=== PATIENT | male | born 1960 | race Two or more races ===

== ENCOUNTER 2017-08-01 08:39 | Inpatient (IN) | payer MEDICAID ==
[2017-08-01] VITALS (7 sets, daily range): BP systolic 126–148; BP diastolic 59–77
[~2017-08-01] VITALS: Ht 165.1 cm; Wt 72.6 kg
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
[2017-08-01 09:21] LABS: MEAN CORPUSCULAR HGB CONC 31.1 G/DL (32.0-36.0); MEAN CORPUSCULAR VOLUME 74 FL (80-99); MEAN PLATELET VOLUME 7.5 FL (6.5-10.1); PLATELET COUNT 89 K/UL (150-450); RED BLOOD COUNT 4.39 M/UL (4.70-6.10); WHITE BLOOD COUNT 9.9 K/UL (4.8-10.8)
[2017-08-01 09:33] LABS: TROPONIN I < 0.30 ng/mL (<=0.30)
[2017-08-01 09:36] LABS: ALANINE AMINOTRANSFERASE 44 U/L (3-41); ALBUMIN/GLOBULIN RATIO 0.8 (1.0-2.7); ASPARTATE AMINO TRANSFERASE 117 U/L (5-40); CALCIUM 7.8 mg/dL (8.6-10.2); CARBON DIOXIDE 20 mEQ/L (20-30); CHLORIDE 87 mEQ/L (98-107); CREATININE 1.1 mg/dL (0.7-1.2); GLOMERULAR FILTRATION RATE > 60 mL/min (>60); HEMOLYSIS 0; SODIUM 123 mEQ/L (135-145); TOTAL PROTEIN 7.8 g/dL (6.6-8.7)
[2017-08-01 09:42] LABS: ANION GAP 16 (5-15)
[2017-08-01 09:44] LABS: POTASSIUM 2.7 mEQ/L (3.4-4.9)
[2017-08-01 09:58] LABS: BILIRUBIN,DIRECT 0.6 mg/dL (0.1-0.3)
--- NOTE | 2017-08-01 10:00 | Diagnostic Imaging Report ---
Indication: Head trauma. Facial trauma and pain Technique: Contiguous 5 mm thick transaxial imaging of the head obtained in a Siemens Sensation [address] scanner. Soft tissue and bone windows generated. Total Dose length Product (DLP): [address] Dose Index Volume (CTDIvol): 70.38, 0.15 mGy Comparison: none Findings: There is mild prominence of the ventricles, basal cisterns, and cerebral sulci consistent with atrophy. Mild, nonspecific, white matter hypoattenuation is noted throughout the brain consistent with chronic small vessel disease. There is no midline shift, edema, acute hemorrhage, mass effect, or abnormal extra-axial fluid collections. There is a moderate degree of left periorbital soft tissue swelling. The soft tissue swelling is consistent with a contusion. There are small radiopaque foci within the area of swelling which may represent a small foreign bodies. Please refer to the report CT facial bones Impression: No acute intracranial bleed, mass effect or edema. Mild atrophy of the brain. Nonspecific white matter hypoattenuation probably due to chronic small vessel disease. Left periorbital soft tissue contusion. The CT scanner at [facility] is accredited by the [employer] and the scans are performed using dose optimization techniques as appropriate to a performed exam including Automatic Exposure control.
--- NOTE | 2017-08-01 10:06 | Diagnostic Imaging Report ---
Indication: Facial orbital trauma and pain Technique: Continuous helical transaxial imaging of the maxillofacial structures obtained without intravenous contrast administration. Coronal 2-D reformats were also obtained. Study obtained in a Siemens sensation [address] Total Dose length Product (DLP): Refer CT head mGycm CT Dose Index Volume (CTDIvol): Refer CT head mGy Comparison: None Findings: There is a left periorbital soft tissue swelling and laceration. Small radiopaque foreign body noted within the contused soft tissues. Patient has had surgery on the left globe. Retro-orbital fat is normal. Extraocular muscles and optic nerve appear unremarkable. There is no proptosis. There is no acute fracture of the orbit or other osseous structures identified. The paranasal sinuses and mastoids are clear. There is an old fracture of the nasal bone on. There is also an old fracture and deformity of the anterior part of the nasal septum. Incidental small right nika bullosa noted. Impression: Left periorbital soft tissue contusion and laceration with small foreign body. No acute fracture identified. Fracture of the nasal bone and anterior nasal septum, likely old. Please correlate clinically. The CT scanner at [facility] is accredited by the [employer] and the scans are performed using dose optimization techniques as appropriate to a performed exam including Automatic Exposure control.
--- NOTE | 2017-08-01 10:09 | Diagnostic Imaging Report ---
Indication: Neck pain.. Trauma Technique: Continuous helical imaging of the cervical spine was obtained transaxially from the skull base to the upper thoracic spine. 2-D coronal and sagittal reformatted images were obtained. Total Dose length Product (DLP): Refer CT head mGycm CT Dose Index Volume (CTDIvol): Refer CT head mGy Comparison: None Findings: There is no acute fracture or malalignment identified. There is no soft tissue swelling identified. Mild uncovertebral arthritis is demonstrated at multiple levels. Some of the intervertebral discs show mild narrowing. Impression: No acute injury Mild spondylosis The CT scanner at [facility] is accredited by the [employer] and the scans are performed using dose optimization techniques as appropriate to a performed exam including Automatic Exposure control.
[2017-08-01] MEDS ORDERED: BENADRYL25 MG ORAL (10:46)
[2017-08-01] MEDS ORDERED: TRIAMCINOLONE A15 G1 TP (10:46)
[2017-08-01 11:08] LABS: BAND NEUTROPHILS % (MANUAL) 0 % (0-8); BASOPHILS % (MANUAL) 0 % (0-2); EOSINOPHILS % (MANUAL) 0 % (0-3); HYPOCHROMASIA 1+; LYMPHOCYTES % (MANUAL) 7 % (20-45); MICROCYTES 1+; NEUTROPHILS % (MANUAL) 78 % (45-75); PLATELET ESTIMATE DECREASED; PLATELET MORPHOLOGY NORMAL; TEAR DROP CELLS 1+; TOTAL CELLS COUNTED 100
[2017-08-01 11:09] LABS: ANISOCYTOSIS 1+
--- NOTE | 2017-08-01 11:21 | Diagnostic Imaging Report ---
Indication: Is Comparison: None A single view chest radiograph was obtained. Findings: Cardiomediastinal appearance is within normal limits for age. Left hemidiaphragm is slightly elevated. Lung volumes are low bilaterally. Pulmonary vascularity is appropriate. The diaphragmatic contour is smooth and costophrenic angles are sharp. No pleural effusions are identified. The bones are unremarkable. Impression: No acute findings
[2017-08-01] MEDS ORDERED: Tetanus/Diptheria/Pertussis Vaccine 0.5ml Syr IM ONE (12:00)
[2017-08-01] MEDS ORDERED: Milk of Magnesia 30ml Ud ORAL PRN (14:15)
[2017-08-01] MEDS ORDERED: Morphine Sulfate 2mg/ml Inj IVP PRN (14:15)
[2017-08-01] MEDS ORDERED: Zolpidem 5mg tab ORAL PRN (14:15)
--- NOTE | 2017-08-01 14:32 | History & Physical ---
History and Physical History & Physicial HP dictated # [id number] VANE AMADOR Aug 01, 2017 14:32
[2017-08-01 19:46] LABS: APPEARANCE,URINE SLIGHTLY CLOUDY; KETONES,URINE NEGATIVE (NEGATIVE); LEUKOCYTE ESTERASE ,URINE 3+ (NEGATIVE); NITRITE,URINE NEGATIVE (NEGATIVE); PH,URINE 8 (4.5-8.0); PROTEIN,URINE NEGATIVE (NEGATIVE); UROBILINOGEN,URINE 1 MG/DL (0.0-1.0)
[2017-08-01 19:54] LABS: BACTERIA,URINE MANY /HPF; ICTOTEST POS; RBC,URINE 0-2 /HPF (0 - 0); SQUAMOUS EPITHELIAL CELL,UR FEW /LPF (NONE/OCC)
[2017-08-01] MEDS: Ciprofloxacin 500mg tab ORAL SCH (20:21)
[2017-08-02] VITALS: BP 140/77
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
[2017-08-02 04:00] VITALS: BP 128/78
[2017-08-02 08:00] VITALS: BP 138/72
[2017-08-02] MEDS: Ciprofloxacin 500mg tab ORAL SCH ×2 (08:36→22:12)
[2017-08-02] MEDS: Morphine Sulfate 4mg/ml Inj IVP PRN ×3 (08:39→17:32)
[2017-08-02 08:51] LABS: ANION GAP 16 (5-15); CALCIUM 8.3 mg/dL (8.6-10.2); CARBON DIOXIDE 16 mEQ/L (20-30); CHLORIDE 95 mEQ/L (98-107); CHOLESTEROL 79 mg/dL (< 200); CHOLESTEROL/HDL RATIO 3.4 (3.3-4.4); GLOMERULAR FILTRATION RATE > 60 mL/min (>60); HEMOLYSIS 0; LDL CHOLESTEROL (CALC.) 40 mg/dL (60-99); SODIUM 127 mEQ/L (135-145)
--- NOTE | 2017-08-02 11:16 | General Progress Note ---
Assessment/Plan Problem List: (1) Hypokalemia ICD Codes: E87.6 - Hypokalemia SNOMED: 81176304 (2) Abrasion of forehead ICD Codes: S00.81XA - Abrasion of other part of head, initial encounter SNOMED: 985997435 (3) Periorbital hematoma of left eye ICD Codes: H05.232 - Hemorrhage of left orbit SNOMED: 3010559 (4) Hyponatremia ICD Codes: E87.1 - Hypo-osmolality and hyponatremia SNOMED: 78924115 (5) UTI (urinary tract infection) ICD Codes: N39.0 - Urinary tract infection, site not specified SNOMED: 20143271 Assessment/Plan Restrict free water Replete K Abxs check final cultures Subjective Allergies: Coded Allergies: No Known Allergies (Unverified , 08/01/17) Subjective feels better Objective Last 24 Hour Vital Signs Date Time Temp Pulse Resp B/P (MAP) Pulse Ox O2 Delivery O2 Flow Rate FiO2 08/02/17 09:39 98.8 08/02/17 08:00 100.2 111 22 138/72 97 Room Air 08/02/17 08:00 111 08/02/17 04:00 111 08/02/17 04:00 98.8 108 20 128/78 97 Room Air 08/02/17 00:00 99 08/02/17 00:00 98.9 94 20 140/77 97 Nasal Cannula 08/01/17 20:00 99.7 93 20 132/72 Room Air 08/01/17 20:00 92 08/01/17 18:27 98.8 08/01/17 17:44 100.0 08/01/17 17:15 102.2 98 20 126/62 98 Room Air 08/01/17 16:00 99 08/01/17 13:50 102 08/01/17 13:41 98.8 105 22 134/77 99 Room Air 08/01/17 13:25 98.9 110 26 148/62 99 Room Air 08/01/17 13:03 98.9 110 26 148/62 99 Room Air 08/01/17 11:22 98.9 108 22 129/65 99 Room Air Intake and Output 08/02/17 08/03/17 19:00 07:00 Intake Total 120 ml Balance 120 ml Intake Oral 120 ml # Bowel Movements 1 Laboratory Tests 08/01/17 16:54: Urine Color Brown, Urine Appearance Slightly cloudy, Urine pH 8, Urine Specific [place] 1.015, Urine Protein Negative, Urine Glucose (UA) Negative, Urine Ketones Negative, Urine Occult Blood 5+H, Urine Nitrite Negative, Urine Bilirubin 3+H, Urine Ictotest Pos, Urine Urobilinogen 1H, Urine Leukocyte Esterase 3+H, Urine RBC 0-2H, Urine WBC 5-10H, Urine Squamous Epithelial Cells Few, Urine Bacteria ManyH, Urine Osmolality 263L, Urine Random Sodium 107 08/02/17 06:45: Sodium Level 127L, Potassium Level 3.0L, Chloride Level 95L, Carbon Dioxide Level 16L, Anion Gap 16H, Blood Urea Nitrogen 17, Creatinine 1.0, Estimat Glomerular Filtration Rate > 60, Glucose Level 116H, Hemoglobin A1c 5.0, Calcium Level 8.3L, Magnesium Level 2.0, Triglycerides Level 78, Cholesterol Level 79, LDL Cholesterol 40L, HDL Cholesterol 23, Cholesterol/HDL Ratio 3.4, Thyroid Stimulating Hormone (TSH) 2.370 Height (Feet): 5 Height (Inches): 5.00 Weight (Pounds): 160 Cardiovascular: normal rate Respiratory/Chest: lungs clear Edema: no edema noted VANE Soni Aug 02, 2017 11:16
[2017-08-02 11:52] VITALS: BP 109/64
[2017-08-02 16:00] VITALS: BP 140/79
[2017-08-02 20:00] VITALS: BP 145/88
[2017-08-03] VITALS: BP 138/86
[2017-08-03 04:00] VITALS: BP 138/74
[2017-08-03 06:39] LABS: BASOPHILS % (AUTO) 2.2 % (0.0-2.0); EOSINOPHILS % (AUTO) 3.4 % (0.0-3.0); LYMPHOCYTES % (AUTO) 18.3 % (20.0-45.0); MEAN CORPUSCULAR HEMOGLOBIN 24.2 PG (27.0-31.0); MEAN CORPUSCULAR HGB CONC 31.5 G/DL (32.0-36.0); MEAN CORPUSCULAR VOLUME 77 FL (80-99); MEAN PLATELET VOLUME 7.8 FL (6.5-10.1); MONOCYTES % (AUTO) 11.4 % (1.0-10.0); NEUTROPHILS % (AUTO) 64.8 % (45.0-75.0); PLATELET COUNT 104 K/UL (150-450); RED BLOOD COUNT 3.73 M/UL (4.70-6.10); RED CELL DISTRIBUTION WIDTH 20.4 % (11.6-14.8); WHITE BLOOD COUNT 7.8 K/UL (4.8-10.8)
[2017-08-03 06:54] LABS: ANION GAP 11 (5-15); CALCIUM 9.5 mg/dL (8.6-10.2); CARBON DIOXIDE 18 mEQ/L (20-30); CHLORIDE 93 mEQ/L (98-107); CREATININE 0.8 mg/dL (0.7-1.2); GLOMERULAR FILTRATION RATE > 60 mL/min (>60); HEMOLYSIS 0; POTASSIUM 4.1 mEQ/L (3.4-4.9); SODIUM 122 mEQ/L (135-145)
[2017-08-03 08:00] VITALS: BP 122/71
[2017-08-03] MEDS: Ciprofloxacin 500mg tab ORAL SCH ×2 (08:53→20:57)
[2017-08-03 12:00] VITALS: BP 139/79
--- NOTE | 2017-08-03 12:37 | General Progress Note ---
Assessment/Plan Problem List: (1) Hypokalemia ICD Codes: E87.6 - Hypokalemia SNOMED: 92329766 (2) Abrasion of forehead ICD Codes: S00.81XA - Abrasion of other part of head, initial encounter SNOMED: 106332583 (3) Periorbital hematoma of left eye ICD Codes: H05.232 - Hemorrhage of left orbit SNOMED: 4815408 (4) Hyponatremia ICD Codes: E87.1 - Hypo-osmolality and hyponatremia SNOMED: 43482247 (5) UTI (urinary tract infection) ICD Codes: N39.0 - Urinary tract infection, site not specified SNOMED: 01156152 Assessment/Plan Restrict free water discussed with RN Abxs follow BMP 3% saline today Subjective Allergies: Coded Allergies: No Known Allergies (Unverified , 08/01/17) Subjective feels better Objective Last 24 Hour Vital Signs Date Time Temp Pulse Resp B/P (MAP) Pulse Ox O2 Delivery O2 Flow Rate FiO2 08/03/17 12:00 98.6 86 19 139/79 96 Room Air 08/03/17 08:00 105 08/03/17 08:00 98.6 88 19 122/71 98 Room Air 08/03/17 04:00 97.9 93 23 138/74 100 Room Air 08/03/17 04:00 87 08/03/17 00:00 100.0 100 23 138/86 98 Room Air 08/03/17 00:00 91 08/02/17 20:00 99.0 97 19 145/88 99 Room Air 08/02/17 20:00 94 08/02/17 16:00 99.1 93 21 140/79 98 Room Air 08/02/17 16:00 94 Intake and Output 08/03/17 08/04/17 19:00 07:00 Intake Total 240 ml Balance 240 ml Intake Oral 240 ml Laboratory Tests 08/03/17 05:10: White Blood Count 7.8, Red Blood Count 3.73L, Hemoglobin 9.0L, Hematocrit 28.6L , Mean Corpuscular Volume 77L, Mean Corpuscular Hemoglobin 24.2L, Mean Corpuscular Hemoglobin Concent 31.5L, Red Cell Distribution Width 20.4H, Platelet Count 104L, Mean Platelet Volume 7.8, Neutrophils (%) (Auto) 64.8, Lymphocytes (%) (Auto) 18.3L, Monocytes (%) (Auto) 11.4H, Eosinophils (%) (Auto ) 3.4H, Basophils (%) (Auto) 2.2H, Sodium Level 122L, Potassium Level 4.1, Chloride Level 93L, Carbon Dioxide Level 18L, Anion Gap 11, Blood Urea Nitrogen 12, Creatinine 0.8, Estimat Glomerular Filtration Rate > 60, Glucose Level 106, Calcium Level 9.5, Magnesium Level 1.7 Height (Feet): 5 Height (Inches): 5.00 Weight (Pounds): 160 Cardiovascular: normal rate Respiratory/Chest: lungs clear Edema: no edema noted Generalized VANE AMADOR Aug 03, 2017 12:37
[2017-08-03] MEDS ORDERED: NaCl 3% 500ml 250 ML IV ONE (14:00)
[2017-08-03 16:00] VITALS: BP 133/73
--- NOTE | 2017-08-03 19:11 | Cardiology Report ---
APPROVED REPORT EKG Measurement Heart [id number] Sinus tachycardia Possible Left atrial enlargement Borderline ECG
[2017-08-03 20:43] VITALS: BP 131/61
[2017-08-04 00:08] VITALS: BP 131/68
[2017-08-04 03:57] VITALS: BP 119/72
[2017-08-04 08:13] VITALS: BP 121/69
[2017-08-04] MEDS: Ciprofloxacin 500mg tab ORAL SCH (09:16)
[2017-08-04 11:07] LABS: ANION GAP 16 (5-15); CALCIUM 8.1 mg/dL (8.6-10.2); CARBON DIOXIDE 18 mEQ/L (20-30); CHLORIDE 96 mEQ/L (98-107); CREATININE 0.6 mg/dL (0.7-1.2); GLOMERULAR FILTRATION RATE > 60 mL/min (>60); HEMOLYSIS 5; POTASSIUM 3.9 mEQ/L (3.4-4.9); SODIUM 130 mEQ/L (135-145)
[2017-08-04 11:41] VITALS: BP 136/78
--- NOTE | 2017-08-04 14:33 | Consultation ---
Consult Note Assessment/Plan Dc dictated # [id number] VANE AMADOR Aug 04, 2017 14:33
[2017-08-04 15:25] VITALS: BP 123/71
--- NOTE | 2017-08-05 18:02 | Discharge Summary ---
DATE OF ADMISSION: 08/01/2017 DATE OF DISCHARGE: 08/04/2017 Chief Complaint: The patient fell and developed left orbital hematoma and was found to be severely hyponatremic in the emergency room. HISTORY OF PRESENT ILLNESS: This is a 56-year-old male, who tripped and fell, and hit his head. He had developed left orbital hematoma. He was seen in the emergency room. The patient was found to be hyponatremic with sodium of 123 and it was thought that it contributed to this fall. Hospital Course: The patient was admitted. He was started on free water restriction and his potassium which was low was treated. He had also urinary tract infection E. coli and was treated with ciprofloxacin. His condition improved and he was eventually discharged home. His latest serum sodium on 08/04/2017 was 130. DISCHARGE DIAGNOSES: 1. Status post fall with left orbital hematoma. 2. Severe hyponatremia. 3. Hypokalemia. 4. Urinary tract infection with Escherichia coli. Jeremías Sierra M.D. DR: Carlos JOB#: [id number] CC: EULOGIO
== END 2017-08-04 16:40 | disposition home or self-care (01) | DRG 425 ==
LOC: EDBD 08:39 → EMR 09:37 → EDBEDREQ 10:10 → 2E 10:57 → EDBEDREQ 12:09 → 2E 21:35
DX: E87.1 Hypo-osmolality and hyponatremia (principal); I10 Essential (primary) hypertension; E87.6 Hypokalemia; N39.0 Urinary tract infection, site not specified; S00.81XA Abrasion of other part of head, initial encounter; S00.12XA Contusion of left eyelid and periocular area, initial encounter; W01.0XXA Fall on same level from slipping, tripping and stumbling without subsequent striking against object, initial encounter; Y92.480 Sidewalk as the place of occurrence of the external cause; B96.20 Unspecified Escherichia coli [E. coli] as the cause of diseases classified elsewhere; F10.10 Alcohol abuse, uncomplicated
CPT/HCPCS: 36415; 70450; 70486; 71010; 72125; 80048; 80053; 80061; 80329; 81001; 82248; 83036; 83735; 83935; 84300; 84443; 84484; 85007; 85025; 87040; 87081; 87086; 87181; 87324; 90471; 90715; 93005; 99285; J2405; J8499